=== PATIENT | female | born 1990 ===

== ENCOUNTER 2022-11-18 09:36 | Emergency (ER) | payer MEDICARE, MEDICAID ==
[~2022-11-18] VITALS: Ht 172 cm; Wt 102.0 kg
--- NOTE | 2022-11-18 09:45 | ED GU-Female ---
General Stated Complaint: RT FLANK PAIN History of Present Illness Date Seen by Provider: Nov 18, 2022 Time Seen by Provider: 09:59 Initial Comments 32-year-old female presents with right-sided flank pain has been there for least a month or better. Patient reports that she is seen her primary care provider and had a CT. That she was told that she had a "small kidney stone" patient is concerned that maybe she cannot pass it since she complains of difficulty urinating and pain. Patient denies any fever, chills, nausea or vomiting. Pain is mainly in the right flank with no radiation. Allergies and Home Medications Patient Home Medication List Home Medication List Reviewed: Yes Review of Systems Review of Systems Constitutional: No chills, No fever EENTM: no symptoms reported Respiratory: no symptoms reported Cardiovascular: no symptoms reported Gastrointestinal: No abdominal pain, No nausea, No vomiting Genitourinary: see HPI Musculoskeletal: back pain Skin: no symptoms reported Psychiatric/Neurological: No Symptoms Reported Physical Exam Vital Signs Vital Signs - First Documented 11/18/22 09:50 Temp 36.5 Pulse 62 Resp 16 B/P (MAP) 132/88 (103) Pulse Ox 97 O2 Delivery Room Air Capillary Refill : Height, Weight, BMI Height: '" Weight: lbs. oz. kg; BMI Method: General Appearance: WD/WN, no apparent distress Neck: full range of motion, supple Cardiovascular: normal peripheral pulses, regular rate, rhythm Respiratory: lungs clear, normal breath sounds Gastrointestinal: non tender, soft Back: CVA tenderness (R) Extremities: normal range of motion Neurologic/Psychiatric: alert, normal mood/affect, oriented x 3 Skin: normal color, warm/dry Progress/Results/Core Measures Suspected Sepsis SIRS Temperature: Pulse: Respiratory Rate: Laboratory Tests 11/18/22 10:05: White Blood Count 7.9 Blood Pressure / Mean: Laboratory Tests 11/18/22 10:05: Creatinine 0.87, Platelet Count 303 Results/Orders Lab Results Laboratory Tests Test 11/18/22 09:52 11/18/22 10:05 Range/Units Urine Color YELLOW Urine Clarity CLEAR Urine pH 6.5 5-9 Urine Specific [place] 1.010 L 1.016-1.022 Urine Protein NEGATIVE NEGATIVE Urine Glucose (UA) NEGATIVE NEGATIVE Urine Ketones NEGATIVE NEGATIVE Urine Nitrite NEGATIVE NEGATIVE Urine Bilirubin NEGATIVE NEGATIVE Urine Urobilinogen 0.2 < = 1.0 MG/DL Urine Leukocyte Esterase NEGATIVE NEGATIVE Urine RBC (Auto) NEGATIVE NEGATIVE Urine RBC NONE /HPF Urine WBC NONE /HPF Urine Squamous Epithelial Cells 2-5 /HPF Urine Crystals NONE /LPF Urine Bacteria TRACE /HPF Urine Casts NONE /LPF Urine Mucus NEGATIVE /LPF Urine Culture Indicated NO White Blood Count 7.9 4.3-11.0 10^3/uL Red Blood Count 4.22 3.80-5.11 10^6/uL Hemoglobin 12.1 11.5-16.0 g/dL Hematocrit 37 35-52 % Mean Corpuscular Volume 87 80-99 fL Mean Corpuscular Hemoglobin 29 25-34 pg Mean Corpuscular Hemoglobin Concent 33 32-36 g/dL Red Cell Distribution Width 14.6 H 10.0-14.5 % Platelet Count 303 130-400 10^3/uL Mean Platelet Volume 10.6 9.0-12.2 fL Immature Granulocyte % (Auto) 0 % Neutrophils (%) (Auto) 46 42-75 % Lymphocytes (%) (Auto) 39 12-44 % Monocytes (%) (Auto) 7 0-12 % Eosinophils (%) (Auto) 6 0-10 % Basophils (%) (Auto) 1 0-10 % Neutrophils # (Auto) 3.7 1.8-7.8 10^3/uL Lymphocytes # (Auto) 3.1 1.0-4.0 10^3/uL Monocytes # (Auto) 0.6 0.0-1.0 10^3/uL Eosinophils # (Auto) 0.5 H 0.0-0.3 10^3/uL Basophils # (Auto) 0.1 0.0-0.1 10^3/uL Immature Granulocyte # (Auto) 0.0 0.0-0.1 10^3/uL Sodium Level 135 135-145 MMOL/L Potassium Level 3.8 3.6-5.0 MMOL/L Chloride Level 101 98-107 MMOL/L Carbon Dioxide Level 22 21-32 MMOL/L Anion Gap 12 5-14 MMOL/L Blood Urea Nitrogen 9 7-18 MG/DL Creatinine 0.87 0.60-1.30 MG/DL Estimat Glomerular Filtration Rate 91 BUN/Creatinine Ratio 10 Glucose Level 114 H 70-105 MG/DL Calcium Level 9.3 8.5-10.1 MG/DL My Orders Orders - MADDEN,ADA L DO Hcg,Qualitative Urine (11/18/22 09:45) Ua Culture If Indicated (11/18/22 09:45) Basic Metabolic Panel (11/18/22 09:56) Cbc With Automated Diff (11/18/22 09:56) Ct Abdomen/Pelvis Wo (11/18/22 09:56) Vital Signs/I&O 11/18/22 09:50 Temp 36.5 Pulse 62 Resp 16 B/P (MAP) 132/88 (103) Pulse Ox 97 O2 Delivery Room Air Capillary Refill : Progress Note : Progress Note Reviewed patient's labs which shows no acute significant findings, her white count, kidney function and urinalysis are normal. Patient CT was reviewed and shows no significant findings. There is a small stone in the kidney but that would not be causing her symptoms. Patient's been having right flank pain for some time. I do suspect is musculoskeletal. I recommend she try some topical lidocaine and Voltaren cream and follow-up with her primary care provider if she needs anything stronger for her management. Patient stable and discharged home Departure Impression Primary Impression: Dysuria Additional Impression: Right flank pain Disposition: HOME, SELF-CARE Condition: Stable Departure-Patient Inst. Referrals: MEMO BLACK (PCP) Primary Care Physician [facility] (Family) Primary Care Physician Patient Instructions: Flank Pain ED, Dysuria, Adult (DC) Add. Discharge Instructions: You may try 4% topical lidocaine with menthol and Voltaren/diclofenac cream as directed on package over your right flank/back to see if it helps with your pain. If you continue to have recurrent pain and symptoms please follow-up with your primary care provider for further evaluation. You may try Tylenol and ibuprofen in addition to the topical medication for your pain RAMIRO MADDENR L DO Nov 18, 2022 09:45
[2022-11-18 09:58] LABS: BILIRUBIN,URINE NEGATIVE (NEGATIVE); CLARITY,URINE CLEAR; COLOR,URINE YELLOW; GLUCOSE, URINE (UA) NEGATIVE (NEGATIVE); KETONES,URINE NEGATIVE (NEGATIVE); LEUKOCYTE ESTERASE ,URINE NEGATIVE (NEGATIVE); NITRITE,URINE NEGATIVE (NEGATIVE); PH,URINE 6.5 (5-9); PROTEIN,URINE NEGATIVE (NEGATIVE)
[2022-11-18 10:05] LABS: BACTERIA,URINE TRACE /HPF
[2022-11-18 10:09] LABS: BASOPHILS # (AUTO) 0.1 10^3/uL (0.0-0.1); BASOPHILS % (AUTO) 1 % (0-10); EOSINOPHILS # (AUTO) 0.5 10^3/uL (0.0-0.3); EOSINOPHILS % (AUTO) 6 % (0-10); HEMATOCRIT 37 % (35-52); HEMOGLOBIN 12.1 g/dL (11.5-16.0); LYMPHOCYTES # (AUTO) 3.1 10^3/uL (1.0-4.0); LYMPHOCYTES % (AUTO) 39 % (12-44); MEAN CORPUSCULAR HEMOGLOBIN 29 pg (25-34); MEAN CORPUSCULAR HGB CONC 33 g/dL (32-36); MEAN CORPUSCULAR VOLUME 87 fL (80-99); MEAN PLATELET VOLUME 10.6 fL (9.0-12.2); MONOCYTES # (AUTO) 0.6 10^3/uL (0.0-1.0); MONOCYTES % (AUTO) 7 % (0-12); NEUTROPHILS # (AUTO) 3.7 10^3/uL (1.8-7.8); NEUTROPHILS % (AUTO) 46 % (42-75); PLATELET COUNT 303 10^3/uL (130-400); WHITE BLOOD COUNT 7.9 10^3/uL (4.3-11.0)
[2022-11-18 10:26] LABS: CALCIUM 9.3 MG/DL (8.5-10.1); CREATININE SERUM 0.87 MG/DL (0.60-1.30); POTASSIUM 3.8 MMOL/L (3.6-5.0)
--- NOTE | 2022-11-18 10:39 | Diagnostic Imaging Report ---
PROCEDURE: CT abdomen and pelvis without contrast. TECHNIQUE: Multiple contiguous axial images were obtained through the abdomen and pelvis without the use of intravenous contrast. Auto Exposure Controls were utilized during the CT exam to meet ALARA standards for radiation dose reduction. INDICATION: Right flank pain. No prior studies are available for comparison. FINDINGS: Lung bases are clear. Liver demonstrates diffuse low attenuation consistent with hepatic steatosis. No liver mass is detected. Gallbladder is unremarkable. No biliary ductal dilatation is seen. Pancreas and spleen are unremarkable. No adrenal mass is identified. Right kidney contains a tiny nonobstructing calculus. Left kidney is unremarkable. No ureteral or bladder calculi are detected. There is no hydronephrosis. Aorta is nonaneurysmal. The bowel loops are normal caliber. Appendix is unremarkable. There is no free fluid present. No inflammatory changes are seen. The uterus and ovaries and bladder are unremarkable. IMPRESSION: 1. Hepatic steatosis. 2. Tiny nonobstructing right renal calculus. No ureteral calculi or hydronephrosis is identified. Dictated by: Dictated on workstation # [id number]
[2022-11-18 10:49] VITALS: BP 110/68
== END 2022-11-18 10:51 | disposition home or self-care (01) ==
LOC: ER FS 09:39
DX: R30.0 Dysuria (principal); R10.9 Unspecified abdominal pain; N20.0 Calculus of kidney; Z28.310 Unvaccinated for COVID-19
CPT/HCPCS: 36415; 74176; 80048; 81000; 84703; 85025